=== PATIENT | female | born 1960 | race Two or more races ===

== ENCOUNTER 2025-02-06 17:35 | Emergency (ER) | payer BC, SELFPAY ==
[2025-02-06 17:36] VITALS: BMI 31.1
--- NOTE | 2025-02-06 17:39 | EKG_ITS ---
[facility] Test Date: 2025-02-06 Pat Name: DIANA Morejonpartment: Room: - Gender: Female [employer] Supervisor: : [id number] Requested By: ED Temporary Provider Order Number: [id number] Reading MD: ED Temporary Provider Measurements Intervals [place] Rate: 112 P: 32 TX: 145 QRS: 6 QRSD: 78 T: -12 QT: 315 QTc: 431 Interpretive Statements SINUS TACHYCARDIA MINIMAL ST DEPRESSION [0.025+ mV ST DEPRESSION] ABNORMAL RHYTHM ECG Compared to ECG 06/12/2023 22:28:44 ST (T wave) deviation now present Sinus rhythm no longer present /store/S0/[id number].pdf
[2025-02-06 17:45] VITALS: BP 131/63; PULSE 112; RESP 18; TEMP 37.9; O2SAT 98
--- NOTE | 2025-02-06 17:59 | PD.EDRME ---
Rapid Medical Screening Exam RME Arrival date/time: 02/06/25 17:35 Chief Complaint: Chest Pain Time Seen by Provider: 02/06/25 17:52 Vital signs: Vital Signs Temperature 100.2 F 02/06/25 17:45 Pulse Rate 112 H 02/06/25 17:45 Respiratory Rate 18 02/06/25 17:45 Blood Pressure 131/63 H 02/06/25 17:45 Pulse Oximetry (%) 98 02/06/25 17:45 Oxygen Delivery Method Room Air 02/06/25 17:45 E Narrative: Epigastric pain, nausea and heart palpitations since 0400 this morning. Denies chest pain, vomiting.
--- NOTE | 2025-02-06 18:02 | XR_ITS ---
EXAMINATION: PA chest single view TECHNIQUE: Upright PA chest single view Date and time: February 06, 2025, 1812 hours, comparison June 12, 2023 INDICATIONS: Epigastric pain shortness of breath and weakness today FINDINGS: Normal heart size The lungs are clear. The osseous structures are demineralized IMPRESSION: No active disease
--- NOTE | 2025-02-06 18:02 | XR_ITS ---
Examination: Abdomen sonogram, Limited Date and time of exam: February 06, 2025, 1847 hours INDICATIONS: Epigastric pain onset today with nausea Technique: Real-time mendez scale transabdominal sonographic images of the upper abdomen obtained. Findings: Normal gallbladder. Normal common bile duct 0.4 cm Pancreatic head 1.7 cm Liver 13.1 cm no liver lesions Normal hepatopetal portal venous flow Patent IVC IMPRESSION: Normal gallbladder Normal common bile duct
[2025-02-06] MEDS: ONDANSETRON ODT 4 MG TABRAP PO (18:26)
[2025-02-06] MEDS: ACETAMINOPHEN 500 MG TABLET 1000 MG PO (18:26)
[2025-02-06 18:37] LABS: Lactate (Lactic Acid) 1.3 mMol/L (0.4-2.0)
[2025-02-06 18:42] LABS: Basophils # (Auto) 0.0 Thou/mm3 (0.0-0.2); Basophils % (Auto) 0 % (0-2.5); Eosinophils # (Auto) 0.0 Thou/mm3 (0.0-0.5); Eosinophils % (Auto) 1 % (0-10); Hematocrit 43.2 % (36.0-46.0); Hemoglobin 14.8 g/dL (12.0-16.0); Immature Granulocytes Auto 0.01 Thou/mm3 (0.00-0.00); Lymphocytes # (Auto) 0.7 Thou/mm3 (1.0-4.8); Lymphocytes % (Auto) 10 % (10-50); Mean Corpuscular HGB Conc 34.3 g/dl (31.0-37.0); Mean Corpuscular Hemoglobin 31.6 pg (25.0-35.0); Mean Corpuscular Volume 92 fL (80-100); Monocytes # (Auto) 0.4 Thou/mm3 (0.0-0.8); Monocytes % (Auto) 6 % (0-12); Neutrophils # (Auto) 5.2 Thou/mm3 (1.8-7.7); Neutrophils % (Auto) 83 % (37-80); Nucleated Red Blood Cell # 0.00 Thou/mm3 (0.00-0.00); Nucleated Red Blood Cell % 0 /100 WBC (0); Platelet Count 255 Thou/mm3 (140-440); RDW Standard Deviation 41.3 fL (36.4-46.3); Red Blood Count 4.69 Miln/mm3 (4.00-5.20); White Blood Count 6.3 Thou/mm3 (3.6-11.0)
--- NOTE | 2025-02-06 18:42 | PD.EDCHEST ---
ED Chest Pain RME/HPI General Chief Complaint: Chest Pain Stated Complaint: DIZZY, ABD.PAIN, AND CHEST PAIN Time Seen by Provider: 02/06/25 17:52 Arrival date/time: 02/06/25 17:35 RME / HPI RME / HPI narrative: Epigastric pain, nausea and heart palpitations since 0400 this morning. Denies chest pain, vomiting. ------ See [facility] for Dr. Tena's HPI documentation. Related Data Home Medications ?Medication ?Instructions ?Recorded ?Confirmed aspirin 81 mg tablet,delayed 81 mg PO QDAY 01/30/20 06/13/23 release atorvastatin 80 mg tablet 80 mg PO QPM 01/30/20 06/13/23 diphenhydramine 38 1 tab PO Q4H PRN Migraine Headache 01/30/20 06/13/23 mg-acetaminophen 500 mg tablet lisinopril 10 mg tablet 10 mg PO QDAY 01/30/20 06/13/23 Allergies Allergy/AdvReac Type Severity Reaction Status Date / Time No Known Allergies Allergy Verified 02/06/25 17:38 Review of Systems Review of Systems Systems Reviewed: All systems reviewed, normal except as documented Past Medical History Past Medical History NEUROLOGIC: Positive Neurological Disorders, Cerebrovascular Accident (October 2019), Transient Ischemic Attacks (TIA) and Migraine; Negative Seizures CARDIAC: Positive Cardiac Disorders, Hypercholesterolemia and Hypertension; Negative Congestive Heart Failure RESPIRATORY: Negative Chronic Obstructive Pulmonary Disease (COPD) GASTROINTESTINAL: Negative Gastrointestinal Disorders GENITOURINARY: Negative Genitourinary Disorders or Renal Disease REPRODUCTIVE: Positive Previous Pregnancies (x3) MUSCULOSKELETAL: Negative Musculoskeletal Disorders ENDOCRINE: Negative Endocrine Disorders, Diabetes Mellitus Type 1 or Diabetes Mellitus Type 2 HEMATOLOGIC: Negative Blood Disorders or Anemia OTHER HISTORY: Positive Chicken Pox, Measles and Mumps; Negative Autoimmune Disease, Blood Transfusions, Blood Transfusion Reaction or Anesthesia Reactions Family History FAMILY HISTORY: Positive Family Respiratory Disorders (MOTHER- PE) and Family Cardiac Disorders ([place]-FATHER) Social History SMOKING STATUS: Never smoker SECOND HAND EXPOSURE: No ED Exam Narrative Physical exam: See [facility] for Dr. Tena's physical exam documentation. Course Course Course Narrative: CXR is ordered for determining the etiology of chest pain. Quality Measures none Orders Category Date Time Status Bedside COVID-19 Antigen Test NOW Care 02/06/25 18:03 Active EKG (ED ONLY) *Do not use* NOW Care 02/06/25 17:39 Completed CXR [XR chest 1V] Stat Exams 02/06/25 18:02 Taken EKG (ED Only) Stat Exams 02/06/25 17:39 Draft US gall bladder Stat Exams 02/06/25 18:02 Ordered Blood Culture (Lab) Stat Lab 02/06/25 18:13 Received CBC Stat Lab 02/06/25 18:13 Received CMP [Comprehensive Metabolic Panel] Stat Lab 02/06/25 18:13 Received Free T4 (Free Thyroxine) Stat Lab 02/06/25 18:13 Received Influenza A & B Rapid Panel Stat Lab 02/06/25 18:04 Ordered Lactate (Lactic Acid) Stat Lab 02/06/25 18:13 Completed Lipase Stat Lab 02/06/25 18:13 Received Magnesium Stat Lab 02/06/25 18:13 Received Procalcitonin Stat Lab 02/06/25 18:13 Received Prothrombin Time with INR Stat Lab 02/06/25 18:13 Received TSH [Thyroid Stimulating Hormone] Stat Lab 02/06/25 18:13 Received Troponin I Stat Lab 02/06/25 18:13 Received UA [Urinalysis] Stat Lab 02/06/25 18:01 Ordered Urine Culture Stat Lab 02/06/25 18:03 Ordered Acetaminophen Tab [Tylenol ES Tab] Med 02/06/25 18:03 Discontinued 1,000 mg PO X1 ONE Ondansetron Odt [Zofran Odt] Med 02/06/25 18:03 Discontinued 4 mg PO X1 ONE Vital Signs Vital signs: Vital Signs Temperature 100.2 F 02/06/25 17:45 Pulse Rate 112 H 02/06/25 17:45 Respiratory Rate 18 02/06/25 17:45 Blood Pressure 131/63 H 02/06/25 17:45 Pulse Oximetry (%) 98 02/06/25 17:45 Oxygen Delivery Method Room Air 02/06/25 17:45 Chest Pain MDM Narrative MDM Narrative:: This section includes all my notes and documentations, including HPI, PE, and ED course. Miah Tena MD HPI: 64yo female ROS: All negative except as documented in HPI. Physical Exam: General: Alert and oriented. No acute distress when remaining still. Eyes: Conjunctivae and lids clear. ENT: No nasal congestion. Neck: Supple. Heart: RRR. Lungs: No respiratory distress. Good air movement. No rhonchi, wheezing, rales. Abdomen: Soft and nontender. Normal bowel sounds. No distension. No rebound or guarding. Back: No CVA tenderness. Skin: Warm and dry. Neuro: Alert and oriented X 3. I reviewed all diagnostic test results. My interpretation of the EKG is My interpretation of the chest x-ray is Blood tests and urine tests At this point, diagnoses include Treatment here included Significant improvement Not yet done: I discussed the case with our hospitalist. About the presentation and exam and diagnostics and treatments here. And need of further care in the hospital. Will accept the patient. Not yet done: Based on my best medical judgment, made decision no further evaluation or treatment indicated at this time. Patient understands and agrees to the discharge instructions customized and printed, see below. Miah Tena MD Patient data External records reviewed:: [facility] previous records (Per chart review, patient was seen here on 06/13/23 for atypical chest pain.) Clinical information provided by:: patient Social determinants that could affect healthcare access:: none Patient has the following chronic illnesses:: CVA, HTN How is presenting disease/condition affected by chronic disease/condition?: exacerbated by Evaluation data The following diagnostics were reviewed and interpreted by me:: lab results, radiology exam(s) and EKG tracing(s) Lab and/or radiology exams considered but not ordered:: none Medications / Prescriptions Medications or Prescriptions considered but not ordered:: none Medication administrations:: Medication Administration History Discontinued Medications Acetaminophen (Acetaminophen 500 Mg Tablet) 1,000 mg PO X1 ONE Stop: 02/06/25 18:04 Last Admin: 02/06/25 18:26 Dose: 1,000 mg Documented By: ADONIS Ondansetron HCl (Ondansetron Odt 4 Mg Tabrap) 4 mg PO X1 ONE; Protocol Stop: 02/06/25 18:04 Last Admin: 02/06/25 18:26 Dose: 4 mg Documented By: ADONIS Discharge Plan Prescriptions/Referrals Prescriptions/Med Rec: No Action atorvastatin 80 mg Tablet 80 mg PO QPM aspirin 81 mg Tablet,Delayed Release (Dr/Ec) 81 mg PO QDAY lisinopril 10 mg Tablet 10 mg PO QDAY diphenhydramine-acetaminophen 38-500 mg Tablet 1 tab PO Q4H PRN (Reason: Migraine Headache) Referrals: No Primary/Family,Physician [Primary Care Provider] - In 1 week Patient/Caregiver Discharge Instructions Print Language: Chinese
--- NOTE | 2025-02-06 18:45 | EDNOTE_ITS ---
ED Abdominal Pain RME/HPI General Chief Complaint: Abdominal Pain Stated complaint: DIZZY, ABD.PAIN, AND CHEST PAIN Time seen by provider: 02/06/25 17:52 Arrival date/time: 02/06/25 17:35 RME / HPI RME / HPI narrative: Epigastric pain, nausea and heart palpitations since 0400 this morning. Denies chest pain, vomiting. ------ See [facility] for Dr. Tena's HPI documentation. Related Data Home Medications ?Medication ?Instructions ?Recorded ?Confirmed aspirin 81 mg tablet,delayed 81 mg PO QDAY 01/30/20 release atorvastatin 80 mg tablet 80 mg PO QPM 01/30/20 diphenhydramine 38 1 tab PO Q4H PRN Migraine He adache 01/30/20 06/13/23 mg-acetaminophen 500 mg tablet lisinopril 10 mg tablet 10 mg PO QDAY 01/30/2006/13 Previous Rx's ?Medication ?Instructions ?Recorded acetaminophen 300 mg-codeine 30 mg 2 tab PO Q8H PRN pa in #20 tabs 02/06/25 tablet ciprofloxacin HCl 500 mg tablet 500 mg PO BID 5 days # 10 tabs 02/06/25 (Cipro) metronidazole 500 mg tablet 500 mg PO BID 5 days #10 t abs 02/06/25 ondansetron 4 mg disintegrating 4 mg PO TID PRN nausea and 02/06/25 tablet vomiting 30 days #10 tabs Allergies Allergy/AdvReac Type Severity Reaction Status Date / Time No Known Allergies Allergy Verified 02/06/25 17:38 Review of Systems Review of Systems Systems Reviewed: All systems reviewed, normal except as documented ED Exam Narrative Physical exam: See [facility] for Dr. Tena's physical exam documentation. Course Quality Measures none Orders Category Date Time Status Bedside COVID-19 Antigen Test NOW Care 02/06/25 18:03 Completed EKG (ED ONLY) *Do not use* NOW Care 02/06/25 17:39 Completed Saline [Insert IV] NOW Care 02/06/25 18:46 Completed Straight [In and Out Catheter] X1 Care 02/06/25 18:[address] abdomen pelvis wo con Stat Exams 02/06/25 18:47 Completed CXR [XR chest 1V] Stat Exams 02/06/25 18:02 Completed EKG (ED Only) Stat Exams 02/06/25 17:39 Draft US gall bladder Stat Exams 02/06/25 18:02 Completed Amylase Stat Lab 02/06/25 18:13 Completed Bilirubin,Direct Stat Lab 02/06/25 18:13 Completed Blood Culture (Lab) Stat Lab 02/06/25 18:13 Received CBC Stat Lab 02/06/25 18:13 Completed CMP [Comprehensive Metabolic Panel] Stat Lab 02/06/25 18:13 Completed Free T4 (Free Thyroxine) Stat Lab 02/06/25 18:13 Completed Lactate (Lactic Acid) Stat Lab 02/06/25 18:13 Completed Lipase Stat Lab 02/06/25 18:13 Completed Magnesium Stat Lab 02/06/25 18:13 Completed Magnesium Stat Lab 02/06/25 18:13 Completed Procalcitonin Stat Lab 02/06/25 18:13 Completed Prothrombin Time with INR Stat Lab 02/06/25 18:13 Completed TSH [Thyroid Stimulating Hormone] Stat Lab 02/06/25 18:13 Completed Troponin I Stat Lab 02/06/25 18:13 Completed UA [Urinalysis] Stat Lab 02/06/25 19:08 Completed Urine Culture Stat Lab 02/06/25 19:08 Received Acetaminophen Tab [Tylenol ES Tab] Med 02/06/25 18:03 Discontinued 1,000 mg PO X1 ONE CIPROFLOXACIN/D5w 400 MG IVPB [Cipro Ivpb] Med 02/06/25 21:04 Discontinued 400 mg in 200 ml IV X1 Famotidine Inj [Pepcid Inj] Med 02/06/25 18:46 Discontinued 20 mg IVP X1 ONE Ketorolac Inj [Toradol Inj] Med 02/06/25 18:46 Discontinued 15 mg IVP X1 ONE Magnesium Sulfate 1 gm Ivpb [Magnesium Sulfate Ivpb] Med 02/06/25 19:27 Discontinued 1 gm in 100 ml IV X1 Morphine* Inj Med 02/06/25 18:46 Discontinued 4 mg IV X1 ONE Ondansetron Inj [Zofran Inj] Med 02/06/25 18:46 Discontinued 4 mg IVP X1 ONE Ondansetron Odt [Zofran Odt] Med 02/06/25 18:03 Discontinued 4 mg PO X1 ONE Pantoprazole Inj [Protonix Inj] Med 02/06/25 18:46 Discontinued 40 mg IVP X1 ONE Sodium Chloride 0.9% 1000 ml [Ns] 1,000 ml Med 02/06/25 18:46 Discontinued IV 999 mls/hr metroNIDAZOLE [Flagyl] Med 02/06/25 21:51 Discontinued 500 mg PO X1 ONE metroNIDAZOLE/NS 500 MG IVPB [Flagyl 500 mg IV] Med 02/06/25 21:04 Discontinued 500 mg in 100 ml IV X1 Vital Signs Vital signs: Vital Signs Temperature 100.2 F 02/06/25 17:45 Pulse Rate 112 H 02/06/25 17:45 Respiratory Rate 18 02/06/25 17:45 Blood Pressure 131/63 H 02/06/25 17:45 Pulse Oximetry (%) 98 02/06/25 17:45 Oxygen Delivery Method Room Air 02/06/25 17:45 Abdominal Pain MDM MDM Narrative MDM Narrative:: This section includes all my notes and documentations, including HPI, PE, and ED course. Miah Tena MD HPI: 64-year-old female here to be evaluated with abdominal pain and nausea for several days, severely worse in the past 12 hours. No other complaints. ROS: All negative except as documented in HPI. Physical Exam: General: Alert and oriented. In severe pain. Eyes: Conjunctivae and lids clear. ENT: No nasal congestion. Neck: Supple. Heart: RRR. Lungs: No respiratory distress. Good air movement. No rhonchi, wheezing, rales. Abdomen: Soft with diffuse tenderness, difficult to localize. Decreased bowel sounds. No distension. No rebound or guarding. Back: No CVA tenderness. Skin: Warm and dry. Neuro: Alert and oriented X 3. I reviewed all diagnostic test results. My interpretation of the EKG is sinus tachycardia with nonspecific ST-T changes. My interpretation of the chest x-ray is NAD. My review of the gallbladder US report is NAD. My review of the CT abdomen pelvis report is possible colitis. Blood/urine tests unremarkable, except Mg 1.6. At this point, diagnoses include: Colitis Treatment here from me included: IVF/Zofran/Morphine/Famotidine/Protonix prior to diagnostic tests. MgSO4 1 gram IV for hypomagnesemia. Cipro 400 mg IV and oral Flagyl 500 mg with colitis diagnosis. Significant improvement noted. Recommend outpatient treatment. Based on my best medical judgment, made decision no further evaluation or treatment indicated at this time. Patient understands and agrees to the discharge instructions customized and printed, see below. Discharge instructions from Dr. Tena: 1. After evaluation, your symptoms are due to colitis, infection/inflammation of your colon. 2. Take Cipro and Flagyl for the infection. 3. Zofran for nausea/vomiting. 4. Tylenol with codeine for severe pain. 5. Clear liquid diet for 24 hours then advance as tolerated. 6. To prevent dehydration, increase oral fluid and maintain clear urine. If dark or yellow, increase oral fluid. 7. See a private doctor on 02/08/25 for recheck. Ask to review all test results and official radiology reports, to make sure you receive all necessary follow-ups and monitoring. To assess for serious intra-abdominal condition, ask for help with more investigation not available here in the ER. Such as EGD or scoping the stomach, colonoscopy or scoping the colon, and referral to see materials and corrosion engineer. 8. Seek immediate medical care with worsening, fever, or with any concerns. Miah Tena MD Patient data External records reviewed:: [facility] previous records (Per chart review, patient was seen here on 06/13/23 for atypical chest pain.) Clinical information provided by:: patient Social determinants that could affect healthcare access:: none Patient has the following chronic illnesses:: CVA, HTN How is presenting disease/condition affected by chronic disease/condition?: uneffected by Evaluation data The following diagnostics were reviewed and interpreted by me:: lab results, radiology exam(s) and EKG tracing(s) (My interpretation of the EKG is: Sinus tachycardia (112 bpm) with nonspecific ST-T changes. Miah Tena MD) Lab and/or radiology exams considered but not ordered:: none Interpretation Summary: I reviewed all diagnostic test results. My interpretation of the EKG is sinus tachycardia with nonspecific ST-T changes. My interpretation of the chest x-ray is NAD. My review of the gallbladder US report is NAD. My review of the CT abdomen pelvis report is possible colitis. Blood/urine tests unremarkable, except Mg 1.6. Medications / Prescriptions Medications or Prescriptions considered but not ordered:: none Medication administrations:: Medication Administration History Discontinued Medications Acetaminophen (Acetaminophen 500 Mg Tablet) 1,000 mg PO X1 ONE Stop: 02/06/25 18:04 Last Admin: 02/06/25 18:26 Dose: 1,000 mg Documented By: OA Famotidine (Famotidine Inj 10 Mg/Ml Vial 2 Ml) 20 mg IVP X1 ONE Stop: 02/06/25 18:47 Last Admin: 02/06/25 20:18 Dose: 20 mg Documented By: EE Sodium Chloride (Ns) 1,000 mls @ 999 mls/hr IV .Q1H1M ONE Stop: 02/06/25 19:46 Last Infusion: 02/06/25 20:51 Dose: Infused Documented By: Admin: 02/06/25 19:50 Dose: 999 mls/hr Documented By: EE Magnesium Sulfate/Dextrose (Magnesium Sulfate Ivpb) 1 gm in 100 mls @ 100 mls/hr IV X1 ONE Stop: 02/06/25 20:26 Last Infusion: 02/06/25 20:46 Dose: Infused Documented By: Admin: 02/06/25 19:46 Dose: 100 mls/hr Documented By: EE Ciprofloxacin/Dextrose (Cipro Ivpb) 400 mg in 200 mls @ 200 mls/hr IV X1 ONE Stop: 02/06/25 22:03 Last Infusion: 02/06/25 22:36 Dose: Infused Documented By: Admin: 02/06/25 21:21 Dose: 200 mls/hr Documented By: TAMMY Metronidazole (Flagyl 500 Mg Iv) 500 mg in 100 mls @ 100 mls/hr IV X1 ONE Stop: 02/06/25 22:03 Last Admin: 02/06/25 22:05 Dose: Not Given Documented By: EE Non-Admin Reason: Cancelled by Provider Ketorolac Tromethamine (Ketorolac Inj 30 Mg/Ml Vial) 15 mg IVP X1 ONE Stop: 02/06/25 18:47 Last Admin: 02/06/25 19:47 Dose: 15 mg Documented By: EE Metronidazole (Metronidazole 250 Mg Tablet) 500 mg PO X1 ONE Stop: 02/06/25 21:52 Last Admin: 02/06/25 22:35 Dose: 500 mg Documented By: EE Morphine Sulfate (Morphine Sulf Inj 4 Mg/Ml Vial) 4 mg IV X1 ONE Stop: 02/06/25 18:47 Last Admin: 02/06/25 19:48 Dose: 4 mg Documented By: EE Ondansetron HCl (Ondansetron Odt 4 Mg Tabrap) 4 mg PO X1 ONE; Protocol Stop: 02/06/25 18:04 Last Admin: 02/06/25 18:26 Dose: 4 mg Documented By: ADONIS Ondansetron HCl (Ondansetron Inj 2 Mg/Ml Inj 2 Ml) 4 mg IVP X1 ONE; Protocol Stop: 02/06/25 18:47 Last Admin: 02/06/25 19:47 Dose: 4 mg Documented By: EE Pantoprazole Sodium (Pantoprazole Inj 40 Mg Vial) 40 mg IVP X1 ONE Stop: 02/06/25 18:47 Last Admin: 02/06/25 19:48 Dose: 40 mg Documented By: TRAVIS Treatment here from me included: IVF/Zofran/Morphine/Famotidine/Protonix prior to diagnostic tests. MgSO4 1 gram IV for hypomagnesemia. Cipro 400 mg IV and oral Flagyl 500 mg with colitis diagnosis. Consultations Consultation(s) initiated? (list below): No Diagnosis Differential diagnosis abdominal pain: acute appendicitis, calculus of kidney, constipation, diverticulitis, endometriosis, gastroenteritis, pancreatitis, small bowel obstruction and other (Colitis, biliary colic, GERD, PUD, gastritis) Most likely diagnosis given after review of the tests above:: Colitis Admission Indicated Admission indicated?: not indicated Explain why admission is indicated or not indicated:: With significant improvement and no condition needing emergent intervention, there was no indication for admission Admission Request Was there a request for admission?: No Disposition Plan Disposition Plan: Discharge Discharge Attestation Discharge Attestation: The patient and all family members were given an opportunity to ask questions and understood the discharge instructions. Discharge instructions specifically effects, indications for sooner follow up or return to the emergency department, and the expected course of current diagnosis. Patient condition: Stable Discharge Plan Plan Patient Disposition: HOME (Self Care) Prescriptions/Referrals Prescriptions/Med Rec: New metronidazole 500 mg tablet 500 mg PO BID 5 Days Qty: 10 0RF acetaminophen-codeine 300-30 mg tablet 2 tab PO Q8H MDD 6 PRN (Reason: pain) Qty: 20 0RF ciprofloxacin HCl [Cipro] 500 mg tablet 500 mg PO BID 5 Days Qty: 10 0RF ondansetron 4 mg tablet,disintegrating 4 mg PO TID PRN (Reason: nausea and vomiting) 30 Days Qty: 10 0RF No Action atorvastatin 80 mg Tablet 80 mg PO QPM aspirin 81 mg Tablet,Delayed Release (Dr/Ec) 81 mg PO QDAY lisinopril 10 mg Tablet 10 mg PO QDAY diphenhydramine-acetaminophen 38-500 mg Tablet 1 tab PO Q4H PRN (Reason: Migraine Headache) Referrals: No Primary/Family,Physician [Primary Care Provider] - In 1 week Problem List Clinical Impression: Colitis Patient/Caregiver Discharge Instructions Discharge Activity: activity as tolerated Education Materials: ED Crohn's Disease Additional Instructions: Discharge instructions from Dr. Tena: 1. After evaluation, your symptoms are due to colitis, infection/inflammation of your colon. 2. Take Cipro and Flagyl for the infection. 3. Zofran for nausea/vomiting. 4. Tylenol with codeine for severe pain. 5. Clear liquid diet for 24 hours then advance as tolerated. 6. To prevent dehydration, increase oral fluid and maintain clear urine.? If dark or yellow, increase oral fluid. 7. See a private doctor on 02/08/25 for recheck. Ask to review all test results and official radiology reports, to make sure you receive all necessary follow-ups and monitoring. To assess for serious intra-abdominal condition, ask for help with more investigation not available here in the ER.? Such as EGD or scoping the stomach, colonoscopy or scoping the colon, and referral to see materials and corrosion engineer. 8. Seek immediate medical care with worsening, fever, or with any concerns. Instrucciones de ge del Dr. Tena: 1. Tras la evaluaci?n, suzan s?ntomas se deben a colitis, infecci?n/inflamaci?n del colon. 2. [place] Ciprofloxacino y Flagyl para la infecci?n. 3. Zofran para las n?useas/v?mitos. 4. Tylenol con code?na para el dolor intenso. 5. Dieta de l?quidos katerin abhi 24 horas y luego aumente la dosis seg?n la tolerancia. 6. Para prevenir la deshidrataci?n, aumente la ingesta de l?quidos y mantenga la orina mesfin. Si la orina es oscura o amarilla, aumente la ingesta de l?quidos. 7. Consulte con un m?dico particular el 02/08/25 para michelle nueva revisi?n. Solicite la revisi?n de todos los resultados de las pruebas y los informes radiol?gicos oficiales para asegurarse de recibir todos los controles y monitoreo necesarios. Para evaluar michelle afecci?n intraabdominal grave, solicite ayuda con otras pruebas que no est?n disponibles en urgencias, shabnam EGD o endoscopia g?strica, colonoscopia o endoscopia de colon, y derivaci?n a un gastroenter?logo. 8. Busque atenci?n m?dica inmediata si presenta empeoramiento, fiebre o cualquier inquietud. Print Language: [place] Irish Stand Alone Forms: Darlene Award Info., Patient Portal Info Letter
--- NOTE | 2025-02-06 18:47 | XR_ITS ---
Examination: CT abdomen and pelvis without contrast. Coronal 3-D reconstructions. Sagittal 2-D reconstructions. Date and time of exam: February 06, 20252004 hours INDICATIONS: Upper abdominal pain and nausea beginning today. CTDI: vol (mGy): 10.6 DLP: (mGycm): 548 Technique: Axial images of the abdomen have been obtained, 3 mm slice thickness Intravenous contrast material has not been administered. Low dose protocols were performed. One or more of the following dose reduction techniques were used; automated exposure control, adjustment of the mA and/or KV according to patient size, use of iterative reconstruction technique. Findings: No focal liver or splenic lesions No gallstones No pancreatic or adrenal mass No renal or ureteral calculi, no hydronephrosis Aorta normal size Normal appendix Mildly fluid distended small bowel, especially terminal ileum, coronal image 66 No diverticulitis Intact urinary bladder Absent uterus No pelvic mass Moderate osteopenia IMPRESSION: Small bowel ileus versus enteritis such as Crohn's disease, clinical correlation advised
[2025-02-06 19:02] LABS: INR 1.0 (0.9-1.3); Prothrombin Time 10.9 Seconds (9.0-12.2)
[2025-02-06 19:13] LABS: Collection Type, Urine Clean Catch
[2025-02-06 19:18] LABS: Amylase 88 U/L (30-118); Bilirubin,Direct 0.2 mg/dL (0.0-0.3); Magnesium 1.6 mg/dL (1.6-2.6)
[2025-02-06 19:35] LABS: Alanine Aminotransferase 19 U/L (10-49); Albumin, Serum 4.7 gm/dL (3.4-4.8); Albumin/Globulin Ratio 1.7 (1.2-2.2); Alkaline Phosphatase 118 U/L (46-116); Anion Gap 10 (7-16); Aspartate Amino Transferase 26 U/L (0-34); BUN/Creatinine Ratio 13 Ratio (12-20); Bilirubin,Total 0.8 mg/dL (0.3-1.2); Blood Urea Nitrogen 9 mg/dL (9-23); Calcium 9.6 mg/dL (8.3-10.6); Calcium (Corrected) 9.6 mg/dL (8.5-10.1); Carbon Dioxide 23.0 mMol/L (20.0-31.0); Chloride 104 mMol/L (98-107); Creatinine (Component) 0.7 mg/dL (0.6-1.3); Estimated Creatinine Clearance 78.1 mL/min (>60); Free T4 (Free Thyroxine) 1.15 ng/dL (0.89-1.76); Globulin 2.8 gm/dL (2.3-3.5); Glucose 109 mg/dL (74-106); Lipase 30 U/L (12-53); Magnesium 1.7 mg/dL (1.6-2.6); Osmolality,Calculated 273 (275-295); Potassium 3.4 mMol/L (3.4-5.1); Procalcitonin 0.14 ng/ml (0.0-0.49); Sodium 137 mMol/L (136-145); Thyroid Stimulating Hormone 0.38 uIU/mL (0.55-4.78); Total Protein 7.5 gm/dL (5.7-8.2); Troponin I < 0.020 ng/mL (0.0-0.045); eGFR > 60 See Note
[2025-02-06 19:43] LABS: Bacteria,Urine Rare; Bilirubin,Urine Negative (Negative); Blood,Urine Trace (Negative); Clarity,Urine Turbid (Clear/Hazy); Color,Urine Lt-Yellow (Lt Yel-Yel); Glucose, Urine Negative (Negative); Ketones,Urine 1+ (Negative); Leukocyte Esterase,Urine Positive (Negative); Nitrite,Urine Negative (Negative); PH,Urine 5.5 (5.0-7.0); Protein,Urine Negative (Neg - Trace); RBC,Urine 7 /hpf (0-3); Specific Gravity,Urine 1.015 (1.001-1.035); Squamous Epithelial Cell,Urine 10 /hpf (0-5); Urobilinogen,Urine Negative mg/dL (0.0-1.0); WBC,Urine 16 /hpf (0-5)
[2025-02-06] MEDS: KETOROLAC INJ 30 MG/ML VIAL 15 MG IVP (19:47)
[2025-02-06] MEDS: ONDANSETRON INJ 2 MG/ML INJ 2 ML 4 MG IVP (19:47)
[2025-02-06] MEDS: MORPHINE SULF INJ 4 MG/ML VIAL IV (19:48)
[2025-02-06] MEDS: SODIUM CHLORIDE 0.9% 1000 ML 1,000 ML 999 ML IV (19:50)
[2025-02-06 20:15] VITALS: BP 130/68; PULSE 84; RESP 19; TEMP 37.3; O2SAT 99
[2025-02-06] MEDS: FAMOTIDINE INJ 10 MG/ML VIAL 2 ML 20 MG IVP (20:18)
[2025-02-06] MEDS: CIPROFLOXACIN/D5w 400 MG IVPB 400 MG/200 ML BAG 200 MG IV (21:21)
[2025-02-06 22:33] VITALS: BP 115/62; PULSE 79; RESP 19; TEMP 37; O2SAT 100
== END 2025-02-06 22:43 | disposition home or self-care (01) ==
PROVIDERS: Physician Assistant; Emergency Provider Emergency Medicine
DX: K52.9 Noninfective gastroenteritis and colitis, unspecified (principal); R06.02 Shortness of breath; R53.1 Weakness; E83.42 Hypomagnesemia; R00.0 Tachycardia, unspecified
CPT/HCPCS: 36415; 71045; 74176; 76705; 80053; 81001; 82150; 82248; 83605; 83690; 83735; 84145; 84439; 84443; 84484; 85025; 85610; 87040; 87086; 87502; 87811; 93005; 96365; 96366; 96375; 99284; J0744; J1885; J2270; J2405; J2470; J3475; J3490; J7030; Q0162; A9270